=== PATIENT | female | born 1990 | race Caucasian/White ===

== ENCOUNTER 2016-08-22 16:23 | Emergency (ER) | payer MEDICAID ==
[~2016-08-22] VITALS: Ht 170.2 cm; Wt 67.1 kg
--- NOTE | 2016-08-22 16:33 | NUR ---
Patient discharged to home in stable conditon. Written and verbal after care instructions given. Patient verbalizes understanding of instructions. Ambulated from ER with stable gait. All belongings with patient.
[2016-08-22 16:36] VITALS: BP 100/60
== END 2016-08-22 16:40 | disposition home or self-care (01) ==
LOC: ER 16:24
DX: O26.899 Other specified pregnancy related conditions, unspecified trimester (principal); K04.7 Periapical abscess without sinus; Z3A.00 Weeks of gestation of pregnancy not specified
CPT/HCPCS: A4663